=== PATIENT | female | born 1950 | race Caucasian/White ===

== ENCOUNTER 2022-10-15 10:54 | Outpatient (REF) | payer OTHER, MEDICAID, SELFPAY | END 2022-10-15 10:55 | disposition home or self-care (01) | LOC: HO.HOSX 10:54 | PROVIDERS: PCP Internal Medicine; Visit Provider Physician Assistant | DX: M25.552 Pain in left hip (principal) | CPT/HCPCS: 99202 ==

== ENCOUNTER 2023-01-17 12:22 | Outpatient (REF) | payer OTHER, MEDICAID, SELFPAY ==
--- NOTE | ~2023-01-17 | XR_ITS ---
EXAMINATION: XR HIP, LEFT CLINICAL INFORMATION: Pain in unspecified hip COMPARISON: None available. TECHNIQUE: AP pelvis and Two views of the left hip. FINDINGS: No fracture. Alignment is anatomic. There is no significant narrowing of the joint spaces of the hips. There is subchondral sclerosis in the superior dorsal lateral aspect of the left acetabulum. There are small marginal osteophytes involving the femoral head. The sacroiliac joints and pubic symphysis are within normal limits. Soft tissues are unremarkable. XR/XR hip LT w PEL1V IMPRESSION: 1. No significant joint space narrowing of the hips. 2. Mild osteoarthritis of the left hip.
== END 2023-01-17 12:23 | disposition home or self-care (01) ==
LOC: HO.HOSX 12:22
PROVIDERS: PCP Internal Medicine; Visit Provider Physician Assistant
DX: M76.892 Other specified enthesopathies of left lower limb, excluding foot (principal); M16.12 Unilateral primary osteoarthritis, left hip
CPT/HCPCS: 73502; 99202

== ENCOUNTER 2023-01-17 12:22 | Outpatient (AMB) | payer OTHER, MEDICAID, SELFPAY ==
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
[2023-01-17 12:53] VITALS: BMI 23.2
== END 2023-01-17 13:02 | disposition home or self-care (01) ==
PROVIDERS: PCP Internal Medicine; Visit Provider Physician Assistant
DX: M76.892 Other specified enthesopathies of left lower limb, excluding foot (principal); M16.12 Unilateral primary osteoarthritis, left hip; M54.32 Sciatica, left side
CPT/HCPCS: 99203

== ENCOUNTER 2023-02-14 08:55 | Outpatient (RCR) | payer OTHER, MEDICAID, SELFPAY ==
[2023-02-14 08:55] VITALS: BP 140/80; PULSE 85; O2SAT 96
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
== END 2023-07-05 13:09 | disposition home or self-care (01) ==
LOC: HO.PTWFD 08:55
PROVIDERS: PCP Internal Medicine; Visit Provider Physician Assistant
DX: M76.892 Other specified enthesopathies of left lower limb, excluding foot (principal); M16.12 Unilateral primary osteoarthritis, left hip
CPT/HCPCS: 97161

== ENCOUNTER 2023-02-28 13:39 | Outpatient (AMB) | payer OTHER, MEDICAID, SELFPAY ==
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
[2023-02-28 13:50] VITALS: BMI 23.2
== END 2023-02-28 14:05 | disposition home or self-care (01) ==
PROVIDERS: PCP Internal Medicine; Visit Provider Orthopaedic Surgery
DX: M25.552 Pain in left hip (principal); M16.12 Unilateral primary osteoarthritis, left hip; M76.892 Other specified enthesopathies of left lower limb, excluding foot
CPT/HCPCS: 99213

== ENCOUNTER → 2023-02-28 13:39 | Outpatient (BNVA) | payer OTHER, MEDICAID, SELFPAY | PROVIDERS: PCP Internal Medicine; Visit Provider Orthopaedic Surgery | DX: M25.552 Pain in left hip (principal); M16.12 Unilateral primary osteoarthritis, left hip; M76.892 Other specified enthesopathies of left lower limb, excluding foot | CPT/HCPCS: 99212 ==

== ENCOUNTER 2023-05-13 09:11 | Outpatient (REF) | payer OTHER, SELFPAY ==
--- NOTE | ~2023-05-13 | XR_ITS ---
EXAMINATION: 1. STANDING RADIOGRAPHS OF THE BILATERAL KNEES 2. LATERAL AND PATELLAR SUNRISE VIEWS OF THE LEFT KNEE CLINICAL INFORMATION: Pain COMPARISON: None TECHNIQUE: Standing frontal views of both knees in addition to lateral and patellar sunrise views of the left knee. FINDINGS: Left knee: No fracture or dislocation of the left knee. There is moderate narrowing of the medial joint space height and mild narrowing of the lateral and patellofemoral joint spaces. Chondrocalcinosis is noted. No suprapatellar joint effusion. Tiny tricompartmental marginal osteophytes. No localized soft tissue swelling of the anterior knee. Standing AP view of the right knee: No gross fracture or dislocation. Moderate narrowing of the medial joint space height with mild narrowing of the lateral joint space height. Chondrocalcinosis noted. XR/XR knee LT 2V IMPRESSION: Mild to moderate degenerative changes of both knees, most prominent within the medial compartments.
--- NOTE | ~2023-05-13 | XR_ITS ---
EXAMINATION: 1. STANDING RADIOGRAPHS OF THE BILATERAL KNEES 2. LATERAL AND PATELLAR SUNRISE VIEWS OF THE LEFT KNEE CLINICAL INFORMATION: Pain COMPARISON: None TECHNIQUE: Standing frontal views of both knees in addition to lateral and patellar sunrise views of the left knee. FINDINGS: Left knee: No fracture or dislocation of the left knee. There is moderate narrowing of the medial joint space height and mild narrowing of the lateral and patellofemoral joint spaces. Chondrocalcinosis is noted. No suprapatellar joint effusion. Tiny tricompartmental marginal osteophytes. No localized soft tissue swelling of the anterior knee. Standing AP view of the right knee: No gross fracture or dislocation. Moderate narrowing of the medial joint space height with mild narrowing of the lateral joint space height. Chondrocalcinosis noted. XR/XR knee standing BI IMPRESSION: Mild to moderate degenerative changes of both knees, most prominent within the medial compartments.
== END 2023-05-13 09:12 | disposition home or self-care (01) ==
LOC: HO.HOSX 09:11
PROVIDERS: Visit Provider Orthopaedic Surgery
DX: M23.92 Unspecified internal derangement of left knee (principal)
CPT/HCPCS: 73560; 73565; 99212

== ENCOUNTER 2023-05-13 11:37 | Outpatient (AMB) | payer OTHER, SELFPAY ==
--- NOTE | 2023-05-13 12:15 | MHC.OFFVIS ---
Intake Vital Signs 05/13/23 12:16 Height 52 ft Weight 127 lb BMI 0.2 Intake Visit Reasons: New Prob- Lt knee pain Intake Note: Kritsa is a 73 year old female who presents today for a new problem visit with complaints of left knee pain. She reports that she tripped over a coffee table about a month ago landing on the left knee. Since this injury she has had pain in the knee. She takes half a Hydrocodone PRN. She has also bee utilizing topical ice and heat application. She has been donig therapy but they are taking is very mild as they werent sure if there was any underlying injury. Allergies Iodine and Iodide Containing Produc [IODINE AND IODIDE CONTAINING PRODUC] Allergy (Severe, Verified 02/28/23 13:55) RASH morphine [MORPHINE] Allergy (Severe, Verified 02/28/23 13:55) STATES HEART ALMOST STOPS shellfish derived [SHELLFISH DERIVED] Allergy (Severe, Verified 02/28/23 13:55) RASH latex [LATEX] Allergy (Intermediate, Verified 02/28/23 13:55) RASH Penicillins [PENICILLINS] Allergy (Intermediate, Verified 02/28/23 13:55) HIVES/SWELLING/ASTHMA codeine Allergy (Unknown, Verified 02/28/23 13:55) Unknown duloxetine [From Cymbalta] Allergy (Unknown, Verified 02/28/23 13:55) Unknown gabapentin Allergy (Unknown, Verified 02/28/23 13:55) Unknown ibuprofen Allergy (Unknown, Verified 02/28/23 13:55) Unknown penicillin V Allergy (Unknown, Verified 02/28/23 13:55) Unknown Sulfa (Sulfonamide Antibiotics) Allergy (Unknown, Verified 02/28/23 13:55) Unknown sulfadiazine Allergy (Unknown, Verified 02/28/23 13:55) Unknown ENVIROMENTAL Allergy (Intermediate, Uncoded 02/28/23 13:55) HAYFEVER HPI New Prob- Lt knee pain HPI Details Krista is a 73 year old woman who returns with new complaints of left knee pain x1 month. She reports tripping and falling onto her left knee ~1 month ago, and has had pain with activity since. She manages her pain with a small Hydrocodone dose prn, ice, and heat, which gives some relief She has been attending PT but they were unsure if she had an underlying injury so this has not been particularly helpful yet. PFSH Surgical History Hx of dilation and curettage Social History Patient Tobacco Use Status: Current everyday Tobacco user Current occupational status: retired Review of Systems Const All systems reviewed & are unremarkable except as noted in HPI and below Physical Exam Vital Signs: BMI result Body Mass Index 0.2 Const General: no acute distress, alert and awake Orientation/consciousness: patient oriented x3 HEENT Head: Yes normocephalic and Yes atraumatic Eyes EOM: EOMs intact bilaterally Resp Effort & Inspection: normal respiratory effort and able to speak in complete sentences Cardio Jugular venous distension: no JVD Skin General skin exam: turgor normal Rashes: no rashes Neuro General: patient oriented x3 Extrem Other: left knee with medial joint line ttp and sharp medial Steinmen's Psych Appearance: grossly normal Affect: normal affect Attitude: cooperative Assessment & Plan Assessment & Plan (1) Internal derangement of left knee: Code(s): M23.92 - Unspecified internal derangement of left knee Plan: Not improving and worsening sharp left medial pain with pain with twisting activities. MRI Plan Scribed for Pepe Suarez MD by Moses Nicholson, chief medical director, on 05/13/23 at 12:30 PM, EST. Orders: Orders XR knee LT 2V 05/13/23 M25.569 - Pain in unspecified knee MR knee LT wo con Today M23.92 - Unspecified internal derangement of left knee XR knee standing BI 05/13/23 M25.569 - Pain in unspecified knee Coding Level of Care Code Est Pt Level 3 (41316) Diagnoses Internal derangement of left knee M23.92
== END 2023-05-13 12:48 | disposition home or self-care (01) ==
PROVIDERS: PCP Internal Medicine; Visit Provider Orthopaedic Surgery
DX: M23.92 Unspecified internal derangement of left knee (principal)
CPT/HCPCS: 99213

== ENCOUNTER 2023-06-20 14:37 | Outpatient (AMB) | payer OTHER, SELFPAY ==
--- NOTE | 2023-06-20 14:50 | A.OFFVIS_ITS ---
Intake Vital Signs 06/20/23 14:51 Height 5 ft 2 in Weight 127 lb BMI 23.2 Intake Visit Reasons: OV- MRI Review LT Knee Intake Note: Krista is a 73 year old female who presents today for an MRI follow up of her left knee. Allergies Iodine and Iodide Containing Produc [IODINE AND IODIDE CONTAINING PRODUC] All ergy (Severe, Verified 02/28/23 13:55) RASH morphine [MORPHINE] Allergy (Severe, Verified 02/28/23 13:55) STATES HEART ALMOST STOPS shellfish derived [SHELLFISH DERIVED] Allergy (Severe, Verified 02/28/23 13:55) RASH latex [LATEX] Allergy (Intermediate, Verified 02/28/23 13:55) RASH Penicillins [PENICILLINS] Allergy (Intermediate, Verified 02/28/23 13:55) HIVES/SWELLING/ASTHMA codeine Allergy (Unknown, Verified 02/28/23 13:55) Unknown duloxetine [From Cymbalta] Allergy (Unknown, Verified 02/28/23 13:55) Unknown gabapentin Allergy (Unknown, Verified 02/28/23 13:55) Unknown ibuprofen Allergy (Unknown, Verified 02/28/23 13:55) Unknown penicillin V Allergy (Unknown, Verified 02/28/23 13:55) Unknown Sulfa (Sulfonamide Antibiotics) Allergy (Unknown, Verified 02/28/23 13:55) Unknown sulfadiazine Allergy (Unknown, Verified 02/28/23 13:55) Unknown ENVIROMENTAL Allergy (Intermediate, Uncoded 02/28/23 13:55) HAYFEVER HPI OV- MRI Review LT Knee HPI Details Krista is a 73 year old woman who returns for an MRI review of her left knee pain. She continues to have pain with daily activities, and limited relief from PO medication or PT. PFSH Surgical History Hx of dilation and curettage Social History Patient Tobacco Use Status: Current everyday Tobacco user Current occupational status: retired Review of Systems Const All systems reviewed & are unremarkable except as noted in HPI and below Physical Exam Vital Signs: BMI result Body Mass Index 23.2 Const General: no acute distress, alert and awake Orientation/consciousness: patient oriented x3 HEENT Head: Yes normocephalic and Yes atraumatic Eyes EOM: EOMs intact bilaterally Resp Effort & Inspection: normal respiratory effort and able to speak in complete sentences Cardio Jugular venous distension: no JVD Skin General skin exam: turgor normal Rashes: no rashes Neuro General: patient oriented x3 Extrem Other: Stabnle MCL TTP over MCL origen and pain with valgus stress testing. Neg Steinmen's Psych Appearance: grossly normal Affect: normal affect Attitude: cooperative Results Reviewed Results Reviewed: I personally reviewed the MR images. G2 MCL origen injury PF OA Assessment & Plan Assessment & Plan (1) Sprain of medial collateral ligament of left knee: Code(s): S83.412A - Sprain of medial collateral ligament of left knee, initial encounter Plan: Stable and improving but with pain MCL Brace and PT F/u 6-8 weeks Plan Scribed for Pepe Suarez MD by Moses Nicholson, front office medical assistant, on 06/20/23 at 2:57 PM, EST. Orders: Orders PT Evaluation and Treatment 06/20/23 S83.412A - Sprain of medial collateral ligament of left knee, initial encounter Coding Level of Care Code Est Pt Level 3 (91372) Diagnoses Sprain of medial collateral ligament of left knee S83.412A
[2023-06-20 14:51] VITALS: BMI 23.2
== END 2023-06-20 15:03 | disposition home or self-care (01) ==
PROVIDERS: PCP Internal Medicine; Visit Provider Orthopaedic Surgery
DX: S83.412A Sprain of medial collateral ligament of left knee, initial encounter (principal)
CPT/HCPCS: 99213

== ENCOUNTER → 2023-06-20 14:37 | Outpatient (BNVA) | payer OTHER, SELFPAY | PROVIDERS: PCP Internal Medicine; Visit Provider Orthopaedic Surgery | DX: S83.412D Sprain of medial collateral ligament of left knee, subsequent encounter (principal) | CPT/HCPCS: 99212 ==

== ENCOUNTER 2023-08-25 14:00 | Outpatient (RCR) | payer OTHER, SELFPAY ==
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
== END 2023-11-23 15:00 | disposition home or self-care (01) ==
LOC: HO.PTWFD 14:00
PROVIDERS: PCP Nurse Practitioner; Visit Provider Orthopaedic Surgery
DX: S83.412A Sprain of medial collateral ligament of left knee, initial encounter (principal)
CPT/HCPCS: 97110; 97116; 97161

== ENCOUNTER 2024-07-30 11:40 | Outpatient (AMB) | payer OTHER, SELFPAY ==
--- NOTE | 2024-07-30 11:54 | A.OFFVIS_ITS ---
Vital Signs 07/30/24 12:09 Height 5 ft 2 in Weight 125 lb BMI 22.9 Intake Visit Reasons: New prob- RT ankle sprain DOI 06/25/24 Intake Note: Krista is a 74 year old female who presents today for an evaluation of right ankle sprain, DOI 06/25/24. Patient had slipped in a hole in her driveway causing her to fall on an inverted ankle, she felt a snap. She was seen at [facility] on 06/26/24 where x-rays were taken. Currently her pain is located at the lateral aspect of ankle and the top of her foot. She has ongoing swelling.Occasional numbness and tingling. Allergies Iodine and Iodide Containing Produc [IODINE AND IODIDE CONTAINING PRODUC] Allergy (Severe, Verified 02/28/23 13:55) RASH morphine [MORPHINE] Allergy (Severe, Verified 02/28/23 13:55) STATES HEART ALMOST STOPS shellfish derived [SHELLFISH DERIVED] Allergy (Severe, Verified 02/28/23 13:55) RASH latex [LATEX] Allergy (Intermediate, Verified 02/28/23 13:55) RASH Penicillins [PENICILLINS] Allergy (Intermediate, Verified 02/28/23 13:55) HIVES/SWELLING/ASTHMA codeine Allergy (Unknown, Verified 02/28/23 13:55) Unknown duloxetine [From Cymbalta] Allergy (Unknown, Verified 02/28/23 13:55) Unknown gabapentin Allergy (Unknown, Verified 02/28/23 13:55) Unknown ibuprofen Allergy (Unknown, Verified 07/30/24 12:03) Unknown penicillin V Allergy (Unknown, Verified 02/28/23 13:55) Unknown Sulfa (Sulfonamide Antibiotics) Allergy (Unknown, Verified 02/28/23 13:55) Unknown sulfadiazine Allergy (Unknown, Verified 02/28/23 13:55) Unknown naproxen Allergy (Verified 07/30/24 12:03) Hives ENVIROMENTAL Allergy (Intermediate, Uncoded 02/28/23 13:55) HAYFEVER HPI HPI New prob- RT ankle sprain DOI 06/25/24: Details: 74-year-old female presents to the office today for an injury she sustained to her right ankle on 06/25/2024. She states she was walking in her driveway when she stepped in a pothole and slipped and fell. She was seen at [facility] where she had x-rays and was referred to Orthopedics for follow-up. She states she has been weight-bearing as tolerated with a regular shoe and has significant pain in the right ankle. [facility] Surgical History Hx of dilation and curettage Social History Patient Tobacco Use Status: Current everyday Tobacco user Current occupational status: retired Review of Systems Const All systems reviewed & are unremarkable except as noted in HPI and below Physical Exam Vital Signs: BMI result Body Mass Index 22.9 Const General: cooperative and no acute distress Orientation/consciousness: patient oriented x3 Resp Effort & Inspection: normal respiratory effort and able to speak in complete sentences Cardio Peripheral pulses: Peripheral pulses 2+ throughout Neuro General: patient oriented x3 Extrem Other: Right ankle 2. On inspection with mild swelling over the lateral aspect of the ankle with tenderness to palpation. There is no bruising and no tenderness over the syndesmosis. No tenderness over the posterior aspect of the ankle. Neurovascularly intact. Results Reviewed Results Reviewed: X-rays of the right ankle obtained in the office today show potentially healing occult fracture of the distal fibula. Ankle mortise is intact. Assessment & Plan Assessment & Plan (1) Right ankle sprain: Code(s): S93.401A - Sprain of unspecified ligament of right ankle, initial encounter Category: Medical Plan: Patient was fit for a tall boot, she can weightbear as tolerated. I explained that I can not rule out if she had a fracture at the time of injury given this was 4 weeks ago. But it does appear on x-ray that she may have some osseous healing. She was also given a lace-up ankle brace in the office today to transition into once she is weaned from the boot. She will begin physical therapy for range of motion gentle strengthening proprioceptive training. If symptoms persist over the next 4-6 weeks she can contact our office otherwise follow up as needed. Orders: Orders XR ankle RT min 3V Today M25.571 - Pain in right ankle and joints of right foot PT Evaluation and Treatment Today S93.401A - Sprain of unspecified ligament of right ankle, initial encounter Coding Level of Care Code New Pt Level 3 (13258) Complex EM visit Add On G2396 Diagnoses Right ankle sprain S93.401G
[2024-07-30 12:09] VITALS: BMI 22.9
--- OUTSIDE RECORDS SUMMARY | 2024-07-30 13:29 | XMS_ITS | Continuity of Care Document ---
Author Organization [facility] ter Address [address] [place] [address]- Care Team Providers Care Wringer And Setter Name Role Phone Erik MCKEON, Elida Primary Care Physician Encounter [facility] Date(s): 04/03/24 - 07/18/[address] [address]- Attending Physician: Vandana Bajwa MD Admitting Physician: Vandana Bajwa MD Referring Physician: Elida Valencia NP Encounter Type: Pre-Outpt Allergies, Adverse Reactions, Alerts Substance Criticality Severity Reaction Reaction Severity Status codeine Unable to assess criticality Unknown Active sulfADIAZINE Unable to assess criticality Persistent Severe Throat Closes up Active morphine Unable to assess criticality Persistent Severe Low Pulse, Slow Breathing Active penicillins Unable to assess criticality Unknown Childhood Active shellfish Unable to assess criticality Persistent Moderate Itchy Hands Active Bactrim Unable to assess criticality Persistent Mild rash Active Cats Unable to assess criticality Persistent Moderate Asthma Attack Active Dogs Unable to assess criticality Persistent Moderate Asthma Attack Active Latex Unable to assess criticality Persistent Moderate Itchy, SOB rash Active Milk Products Unable to assess criticality Persistent Moderate Active Nuts Unable to assess criticality Persistent Severe Throat Closes Up Active Cymbalta Unable to assess criticality Unknown Active iodine Unable to assess criticality Unknown Active Egg Allergy Active Medications acetaminophen-HYDROcodone 325 mg-5 mg oral tablet 2 tablet, By Mouth, Every 4 hours, PRN for pain, 0 Refills, Maintenance, 10/22/21 10:09:00 AM EDT, Tablet, Partial fill upon patient request if the prescription is for a schedule II opioid drug. Start Date: 10/22/21 Status: Ordered Repeat number: 1 Ambien 10 mg oral tablet 0.5 tablet = 5 mg, By Mouth, Daily at bedtime, PRN as needed for insomnia, 0 Refills, Maintenance, 08/05/22 1:03:00 PM EST, Tablet, Partial fill upon patient request if the prescription is for a schedule II opioid drug. Start Date: 08/05/22 Status: Ordered Repeat number: 1 amLODIPine 10 mg oral tablet 10 mg, 1, tablet, By Mouth, Daily, Refills 0, Maintenance, 10/22/21 10:11:00 AM EDT, Partial fill upon patient request if the prescription is for a schedule II opioid drug. Start Date: 10/22/21 Status: Ordered Repeat number: 1 diazepam 2 mg oral tablet 2 mg, 1, tablet, By Mouth, Every 8 hours, Refills 0, Maintenance, 10/22/21 10:09:00 AM EDT, Partial fill upon patient request if the prescription is for a schedule II opioid drug. Start Date: 10/22/21 Status: Ordered Repeat number: 1 diclofenac 1% topical gel 1 application, Topically, 4 times a day, # 100 Gm, 0 Refills, Maintenance, 10/22/21 10:12:00 AM EDT,Gel, Partial fill upon patient request if the prescription is for a schedule II opioid drug. Start Date: 10/22/21 Status: Ordered Quantity: 100.0 Unit: g Repeat number: 1 Eye Drops- Allergy Eye Drops- Allergy, Refills 0, Maintenance, 10/22/21 10:14:00 AM EDT, Supply Start Date: 10/22/21 Status: Ordered Repeat number: 1 Flonase 50 mcg/inh nasal spray Daily, 0 Refills, Maintenance, 10/22/21 10:12:00 AM EDT, Partial fill upon patient request if the prescription is for a schedule II opioid drug. Start Date: 10/22/21 Status: Ordered Repeat number: 1 glipiZIDE 5 mg oral tablet 5 mg, 1, tablet, By Mouth, Daily, Refills 0, Maintenance, 10/22/21 10:10:00 AM EDT, Partial fill upon patient request if the prescription is for a schedule II opioid drug. Start Date: 10/22/21 Status: Ordered Repeat number: 1 Lantus Solostar Pen 100 units/mL subcutaneous solution = 10 units, Subcutaneous Injection, Daily at bedtime, take 10 untis daily. e.11.9, 30 day supply, #15 mL, 11 Refills, Maintenance, 04/03/24 11:43:00 AM EDT, Solution, [facility]/pharmacy #[id number], Partial fill upon patient request if the prescription is for a schedule II opioid drug., 157.5, cm, 04/03/24 11:12:00 EDT, Height, 58.3, kg, 10/07/23 12:15:00 EDT, Dry Weight Start Date: 04/03/24 Status: Ordered Quantity: 15.0 Unit: mL Repeat number: 12 losartan 50 mg oral tablet 50 mg, 1, tablet, By Mouth, Daily, Refills 0, Maintenance, 10/22/21 10:10:00 AM EDT, Partial fill upon patient request if the prescription is for a schedule II opioid drug. Start Date: 10/22/21 Status: Ordered Repeat number: 1 omeprazole 20 mg oral delayed release tablet 1 tablet = 20 mg, By Mouth, Daily, 0 Refills, Maintenance, 10/22/21 10:07:00 AM EDT, Partial fill upon patient request if the prescription is for a schedule II opioid drug. Start Date: 10/22/21 Status: Ordered Repeat number: 1 Pen [place], 31 G x 5 mm BD Ultra Fine III See Instructions, # 200 each, Refills 11, Tot. Refills 11, Maintenance, Use as directed for diabetes care 4 times per day, 04/03/24 11:45:00 AM EDT, Supply, 157.5, cm, 04/03/24 11:12:00 EDT, Height, 58.3, kg, 10/07/23 12:15:00 EDT, Dry Weight Start Date: 04/03/24 Status: Ordered Quantity: 200.0 Unit: each Repeat number: 12 Tradjenta 5 mg oral tablet 1 tablet = 5 mg, By Mouth, Daily, 0 Refills, Maintenance, 10/22/21 10:08:00 AM EDT, Partial fill upon patient request if the prescription is for a schedule II opioid drug. Start Date: 10/22/21 Status: Ordered Repeat number: 1 Ventolin 90 mcg Inhaler 2, puffs, Inhalation, 4 times a day, Maintenance, 11/14/13 2:56:58 PM EDT Start Date: 11/14/13 Status: Ordered Repeat number: 1 Social History Social History Type Response Tobacco Type: Cigarettes. To bacco use times per day: 1 PPD. Sex Sex Representation Female (finding) Patient Care team information Care Team Personnel Name: Elida Valencia NP Position: [facility] Outreach Member Role: PCP Address: [address] [place] [id number] Telecom: Care Team Related Persons Name: JESUS BARRIOS Insurance Providers Guarantor name: ANA BARRIOS Health Plan Information #: 1 Payer: NA Member Number: [id number] Policy Number: NA Group Number: [facility] Health Plan Information #: 2 Payer: NA Member Number: [id number] Policy Number: NA Group Number: [id number]
--- OUTSIDE RECORDS SUMMARY | 2024-07-30 13:29 | XMS_ITS | Encounter Summary ---
Author Organization [facility] Address [address] [place] [address] Care Team Providers Care Emergency Management Coordinator Name Role Phone Elida Valencia NP Primary Care Provider Unavaila ble Jose Cade DO Primary Care Provider Unav ailable Encounter Details Date Type Department Care Team Description 02/21/2023 Orders Only Medical Records [address] [place] [address] Abstract, Provider Social History Tobacco Use Types Packs/Day Years Used Date Smoking Tobacco: Every Day Cigarettes 1 20 Smokeless Tobacco: Former Chew Comments:started smoking at age 47 Alcohol Use Standard Drinks/Week Comments Yes 0 (1 standard drink = 0.6 oz pur e alcohol) 2-4 drinks on a weekend day Sex Assigned at Date Recorded Not on file documented as of this encounter Plan of Treatment Not on file documented as of this encounter Procedures Procedure Name Priority Date/Time Associated Diagnosis Comments OUTSIDE COLONOSCOPY Routine 10/18/2022 documented in this encounter Results * OUTSIDE COLONOSCOPY (10/18/2022) Provider Abstract RADIOLOGY documented in this encounter Visit Diagnoses Not on filedocumented in this encounter Care Teams Emergency Management Coordinator Relationship Specialty Start Date End Date Elida Valencia NP PCP - General Internal Medicine 04/05/17 06/21/23 Jose Cade DO PCP - General Internal Medicine 06/22/23 documented as of this encounter
--- OUTSIDE RECORDS SUMMARY | 2024-07-30 13:29 | XMS_ITS | Encounter Summary ---
Author Organization [employer] [facility] Address [address] [place] [address] [address] [place] [address] Care Team Providers Care Nuclear Medicine Technologist Name Role Phone Unavailable Primary Care Provider Unavailabl e Encounter Details Date Type Department Care Team (Latest Contact Info) Description 10/25/2018 Abstract [facility] CONVERSIONS Dental, Provider, DDS Social History Tobacco Use Types Packs/Day Years Used Date Smoking Tobacco: Never Assessed Comments Unknown Sex and Gender Information Value Date Recorded Sex Assigned at Female 04/05/2022 10:30 AM EDT Legal Sex Female 10:30 AM EDT Gender Identity Female 04/05/2022 10:30 AM EDT Sexual Orientation Choose not to disclose 2021 10:30 AM EDT documented as of this encounter Plan of Treatment Not on file documented as of this encounter Visit Diagnoses Not on filedocumented in this encounter
--- OUTSIDE RECORDS SUMMARY | 2024-07-30 13:29 | XMS_ITS | Continuity of Care Document ---
Author Organization [facility] ter Address [address] [place] [address]- Care Team Providers Care District Court Reporter Name Role Phone Elida Valencia NP Primary Care Physician Encounter [facility] Date(s): 06/18/24 - 07/18/[address] [address]- Attending Physician: Ernst Temple Admitting Physician: AdmtrErnst Referring Physician: Admtr ArMuna Encounter Type: Triage Allergies, Adverse Reactions, Alerts Substance Criticality Severity [...] Refills, Maintenance, 04/03/24 11:43:00 AM EDT, Solution, [facility]/pharmacy #[id number], Partial fill upon patient request if [...] 10/22/21 Status: Ordered Repeat number: 1 Pen [place], 31 G x 5 mm BD Ultra [...] Team Personnel Name: Elida Valencia NP Position: [facility] Outreach Member Role: PCP Address: [address] [place] [id number] Telecom: Care Team Related Persons Name: JESUS BARRIOS Insurance Providers Guarantor name: ANA BARRIOS Health Plan Information #: 1 Payer: [place] Member Number: NA Policy Number: NA Group Number: NA
--- OUTSIDE RECORDS SUMMARY | 2024-07-30 13:29 | XMS_ITS | Encounter Summary ---
Author Organization [facility] Address [address] [place] [address] Care Team Providers Care Gis Mapping Technician Name Role Phone Elida Valencia NP Primary Care Provider Unavaila ble Jose Cade DO Primary Care Provider Unav ailable Encounter Details Date Type Department Care Team Description 06/15/2017 Business Doc Medical Records [address] [place] [id number] Abstract, Provider Social History Tobacco Use Types [...] on filedocumented in this encounter Care Teams Gis Mapping Technician Relationship Specialty Start Date End Date Elida Valencia NP PCP - General Internal Medicine 04/05/17 06/21/23 Jose Cade DO PCP - General Internal Medicine 06/22/23 documented as of this encounter
--- OUTSIDE RECORDS SUMMARY | 2024-07-30 13:29 | XMS_ITS | Clinical Summary ---
Author Organization [facility] Address [address] [place] [address] Care Team Providers Care Chemical Laboratory Assistant Name Role Phone Rayo Shyamsharlene MORRISON Primary Care Provider Unav ailable Allergies Active Allergy Reactions Severity Noted Date Comments Cats 05/02/2017 Codeine 05/02/2017 Dogs 05/02/2017 Eggs 05/02/2017 Flu Virus Vaccine 05/02/2017 Latex Hives/Urticaria,SOB, Wheezing,Rash/Dermatitis 05/02/2017 Morphine Anaphylaxis 05/02/2017 Penicillins SOB, Wheezing,Rash/Dermatitis,Swelling/Rafael a 05/02/2017 Shellfish Allergy 05/02/2017 Sulfa Drugs Hives/Urticaria 05/02/2017 Medications Medication Sig Dispensed Refills Start Date End Date Status Dulaglutide 0.75 MG/0.5ML Solution Pen-injector Inject into the skin. 0 Active fluorometholone (FML) 0.1 % ophthalmic suspension 1 Drop every 4 hours. 0 Active ALBUTEROL SULFATE 108 (90 BASE) MCG/ACT Aero Soln Inhale 2 Puffs into the lungs every 4 hours as needed. 0 Active Dapagliflozin Propanediol 10 MG Tab Take by mouth. 0 Active omeprazole (PRILOSEC) 20 MG capsule Take 20 mg by mouth daily. 0 Active Clotrimazole 10 MG Lozenge Take by mouth. 0 Active valacyclovir (VALTREX) 1 G tablet Take 1,000 mg by mouth 3 times daily. 0 Active amitriptyline (ELAVIL) 10 MG tablet TAKE 1/2 (5MG) TABLET BY MOUTH EVERY EVENING 3 04/09/2017 Active SYMBICORT 80-4.5 MCG/ACT inhaler INHALE 2 PUFFS BY MOUTH TWICE A DAY 2 04/05/2017 Active clindamycin (CLEOCIN) 300 MG capsule TAKE 1 CAPSULE THREE TIMES A DAY FOR 7 DAYS 0 03/07/2017 Active VOLTAREN 1 % Gel APPLY DIRECTED NEEDED TRANSDERMAL 30 DAYS 2 03/01/2017 Active PROCTOSOL HC 2.5 % rectal cream APPLY A SMALL AMOUNT TO AFFECTED AREA TWICE A DAY 3 03/17/2017 Active GAVILYTE-G 236 G suspension TAKE 237 ML BY MOUTH DIRECTED DIRECTED GLASS FULL EVERY 10-15 MINS 0 03/17/2017 Active Zolpidem Tartrate 10 MG Tab TAKE 1 TABLET BY MOUTH AT BEDTIME NEEDED 2 04/11/2017 Active Family History Medical History Relation Name Comments CA Breast Negative Hx CA Colon Negative Hx CA Ovarian Negative Hx Uterine Cancer Negative Hx Social History Tobacco Use Types Packs/Day Years Used Date Smoking Tobacco: Every Day Cigarettes 1 20 Smokeless Tobacco: Former Chew Comments:started smoking at age 47 Alcohol Use Standard Drinks/Week Comments Yes 0 (1 standard drink = 0.6 oz pur e alcohol) 2-4 drinks on a weekend day Sex Assigned at Date Recorded Not on file Last Filed Vital Signs Vital Sign Reading Time Taken Comments Blood Pressure 120/64 05/02/2017 2:29 PM EST Pulse 80 05/02/2017 2:29 PM EST Temperature - - Respiratory Rate 20 05/02/2017 2:29 PM EST Oxygen Saturation - - Inhaled Oxygen Concentration - - Weight 61.1 kg (134 lb 9.6 oz) 05/02/2017 2:29 P M EST Height 157.5 cm (5' 2 ) 05/02/2017 2:29 PM EST Body Mass Index 24.62 05/02/2017 2:29 PM EST Plan of Treatment Health Maintenance Due Date Last Done Comments Covid-19 Vaccine (#1) 1950 DEPRESSION SCREEN 1963 HEPATITIS C SCREENING 1969 TOBACCO CHECK/ADVISE 1969 DTAP/TDAP/TD (1 - Tdap) 1970 CHOLESTEROL SCREENING 1971 SHINGLES VACCINE (2 of 3) 08/10/2012 06/15/2012 BONE DENSITY SCREENING 01/09/2016 FALL RISK ASSESSMENT 01/09/2016 PNEUMOCOCCAL VACCINE (1 - PCV) 01/09/2016 MAMMOGRAM 04/03/2023 04/03/2022, 03/07, 03/19/2020, Additional history exists INFLUENZA (#1) 2024 04/27/2019 BMI CHECK/ADVISE 06/06/2024 COLON CANCER SCREENING 10/18/2032 10/18/2022 Care Teams Chemical Laboratory Assistant Relationship Specialty Start Date End Date Jose Cade DO PCP - General Internal Medicine 06/22/23
--- OUTSIDE RECORDS SUMMARY | 2024-07-30 13:29 | XMS_ITS | Encounter Summary ---
Author Organization [facility] Address [address] [place] [address] Care Team Providers Care Chronic Condition Nurse Name Role Phone Elida Valencia NP Primary Care Provider Unavaila ble Jose Cade DO Primary Care Provider Unav ailable Encounter Details Date Type Department Care Team Description 02/21/2023 Transfer Records Medical Records [address] [place] [address] Abstract, Provider Social History Tobacco Use Types [...] on filedocumented in this encounter Care Teams Chronic Condition Nurse Relationship Specialty Start Date End Date Elida Valencia NP PCP - General Internal Medicine 04/05/17 06/21/23 Jose Cade DO PCP - General Internal Medicine 06/22/23 documented as of this encounter
--- OUTSIDE RECORDS SUMMARY | 2024-07-30 13:29 | XMS_ITS | Clinical Summary ---
Author Organization [employer] [facility] Address [address] [place] [address] 7 [place] [address] Care Team Providers Care Industrial Retrofit Designer Name Role Phone Unavailable Primary Care Provider Unavailabl e Active Problems Problem Noted Date Diagnosed Date Dental caries 05/18/2023 Social History Tobacco Use Types Packs/Day Years Used Date Smoking Tobacco: Never Assessed Comments Unknown Sex and Gender Information Value Date Recorded Sex Assigned at Female 04/05/2022 10:30 AM EDT Legal Sex Female 10:30 AM EDT Gender Identity Female 04/05/2022 10:30 AM EDT Sexual Orientation Choose not to disclose 2021 10:30 AM EDT Last Filed Vital Signs Vital Sign Reading Time Taken Comments Blood Pressure 150/88 10/09/2020 12:05 AM EDT Pulse - - Temperature - - Respiratory Rate - - Oxygen Saturation - - Inhaled Oxygen Concentration - - Weight - - Height - - Body Mass Index - - Plan of Treatment Health Maintenance Due Date Last Done Comments CT Colonography 1951 Colonoscopy 1951 Colorectal Cancer Screening 1951 Depression Screening 1951 FIT DNA/Cologuard 1951 FIT 1951 FOBT 1951 SDOH Screening 1951 Sigmoidoscopy 1951 Alcohol/Substance Use Screening 1963 Tobacco Screening 1963 Hepatitis C Screening 1969 DTaP/Tdap/Td Vaccines (1 - Tdap) 1970 Mammogram 1991 Pneumococcal Vaccine: 50+ Years (1 of 1 - PCV) 2001 Dental X-Ray: Bitewings 06/10/2017 06/09/2016 Dental Oral Exam 04/28/2019 10/25/2018, , 03/14/2017, Additional history exists Dental Prophylaxis 04/28/2019 10/25/2018, 0 02/23/2018, 03/14/2017 Dental X-Ray: Full Mouth 06/10/2019 06/09/2016 COVID-19 Vaccine ( season) 2024 03/13/2022, 04/05/2021, 09/13/2020, Additional history exists Influenza Vaccine (#1) 2024 2, 03/14/2021, 04/06/2020, Additional history exists RSV Patients and Patients Aged 60 years or older (1 - 1-dose 75+ series) 2026 Zoster Vaccines Completed 04/28/2020, 07/2019, 06/15/2012 HIB Vaccines Aged Out No longer eligi ble based on patient's age to complete this topic HPV Vaccines Aged Out No longer eligi ble based on patient's age to complete this topic Hepatitis A Vaccines Aged Out No long er eligible based on patient's age to complete this topic Hepatitis B Vaccines Aged Out No long er eligible based on patient's age to complete this topic IPV Vaccines Aged Out No longer eligi ble based on patient's age to complete this topic Meningococcal Vaccine Aged Out No jimmy dileep eligible based on patient's age to complete this topic RSV under 20 months Aged Out No longe r eligible based on patient's age to complete this topic Rotavirus Vaccines Aged Out No longer eligible based on patient's age to complete this topic Procedures Procedure Name Priority Date/Time Associated Diagnosis Comments PROPHYLAXIS - ADULT Routine 10/25/2018 1 2:00 AM EDT PERIODIC ORAL EVALUATION - ESTABLISHED PATIENT Routine 10/25/2018 12:00 AM EDT INTRAORAL - COMPLETE SERIES OF RADIOGRAPHIC IMAGES Routine 06/09/2016 12:00 AM EST from Last 3 Months or Most Recently Relevant to Health Maintenance Insurance DENTAL - [facility] * Guarantor: Krista Talavera Account Type Relation to Patient Date of Phone Billing Address Personal/Family Self [facility] * Guarantor: Krista Talavera Account Type Relation to Patient Date of Phone Billing Address Personal/Family Self [address] [facility] [place] * Guarantor: Krista Talavera Account Type Relation to Patient Date of Phone Billing Address Personal/Family Self [facility]
--- OUTSIDE RECORDS SUMMARY | 2024-07-30 13:29 | XMS_ITS | Clinical Summary ---
Author Organization [facility] Address [address] [place] [address] Care Team Providers Care Watch Crystal Edge Grinder Name Role Phone Unavailable Primary Care Provider Unavailabl e Social History Tobacco Use Types Packs/Day Years Used Date Smoking Tobacco: Never Assessed Sex and Gender Information Value Date Recorded Sex Assigned at Not on file Gender Identity Not on file Sexual Orientation Not on file Job Start Date Occupation Industry Not on file Not on file Not on file Plan of Treatment Not on file
== END 2024-07-30 12:35 | disposition home or self-care (01) ==
PROVIDERS: PCP Nurse Practitioner; Visit Provider Physician Assistant
DX: S93.401A Sprain of unspecified ligament of right ankle, initial encounter (principal)
CPT/HCPCS: 99213; G2211

== ENCOUNTER → 2024-07-30 11:47 | Outpatient (BNV) | payer OTHER, SELFPAY | PROVIDERS: Visit Provider Radiology Diagnostic Radiology | DX: M25.571 Pain in right ankle and joints of right foot (principal) | CPT/HCPCS: 73610 ==

== ENCOUNTER 2024-07-30 12:34 | Outpatient (REF) | payer OTHER, SELFPAY ==
--- NOTE | ~2024-07-30 | XR_ITS ---
EXAMINATION: XR ANKLE, RIGHT CLINICAL INFORMATION: M25.571 - Pain in right ankle and joints of right foot COMPARISON: None available. TECHNIQUE: AP, lateral, and mortise views of the right ankle. FINDINGS: Small avulsion fracture arising from the tip of the lateral malleolus suspected. There is overlying soft tissue swelling. The mortise is intact. Talar dome is normal. There are no additional fractures. The subtalar joints and calcaneus are intact. Small plantar calcaneal spur. XR/XR ankle RT min 3V IMPRESSION: 1. Suspect small avulsion fracture from the tip of the lateral malleolus. Overlying soft tissue swelling. Electronically signed by: Bob Montero MD 07/31/2024 01:31 PM ANDREIA CABRERA
--- OUTSIDE RECORDS SUMMARY | 2024-07-31 15:14 | XMS_ITS | Encounter Summary ---
Author Organization [employer] [facility] Address [address] [place] [address] [address] [place] [address] Care Team Providers Care Underground Repairer Name Role Phone Unavailable Primary Care Provider Unavailabl e Encounter Details Date Type Department Care Team (Latest Contact Info) Description 10/25/2018 Abstract [facility] CONVERSIONS Dental, Provider, DDS Social History Tobacco [...]
--- OUTSIDE RECORDS SUMMARY | 2024-07-31 15:14 | XMS_ITS | Encounter Summary ---
Author Organization [facility] Address [address] [place] [address] Care Team Providers Care Network Associate Name Role Phone Elida Valencia NP Primary Care Provider Unavaila ble Jose Cade DO Primary Care Provider Unav ailable Encounter Details Date Type Department Care Team Description 06/10/2017 Transfer Records Medical Records [address] [place] [address] Abstract, Provider Social History Tobacco Use Types [...] on filedocumented in this encounter Care Teams Network Associate Relationship Specialty Start Date End Date Elida Valencia NP PCP - General Internal Medicine 04/05/17 06/21/23 Jose Cade DO PCP - General Internal Medicine 06/22/23 documented as of this encounter
--- OUTSIDE RECORDS SUMMARY | 2024-07-31 15:14 | XMS_ITS | Encounter Summary ---
Author Organization [facility] Address [address] [place] [address] Care Team Providers Care Senior Systems Architect Name Role Phone Elida Valencia NP Primary Care Provider Unavaila ble Jose Cade DO Primary Care Provider Unav ailable Encounter Details Date Type Department Care Team Description 02/21/2023 Orders Only Medical Records [address] [place] [address] Abstract, Provider Social History Tobacco Use Types [...] on filedocumented in this encounter Care Teams Senior Systems Architect Relationship Specialty Start Date End Date Elida Valencia NP PCP - General Internal Medicine 04/05/17 06/21/23 Jose Cade DO PCP - General Internal Medicine 06/22/23 documented as of this encounter
--- OUTSIDE RECORDS SUMMARY | 2024-07-31 15:14 | XMS_ITS | Clinical Summary ---
Author Organization [employer] [facility] Address [address] [place] [address] [address] [place] [address] Care Team Providers Care Fruit Sprayer Name Role Phone Unavailable Primary Care Provider [...] Relevant to Health Maintenance Insurance DENTAL - [facility] * Guarantor: Krista Talavera Account Type Relation to Patient Date of Phone Billing Address Personal/Family Self [facility] * Guarantor: Krista Talavera Account Type Relation to Patient Date of Phone Billing Address Personal/Family Self [address] [facility] * Guarantor: Krista Talavera Account Type Relation to Patient Date of Phone Billing Address Personal/Family Self [facility]
--- OUTSIDE RECORDS SUMMARY | 2024-07-31 15:14 | XMS_ITS | Encounter Summary ---
Author Organization [facility] Address [address] [place] [address] Care Team Providers Care Scale Expert Name Role Phone Elida Valencia NP Primary Care Provider Unavaila ble Jose Cade DO Primary Care Provider Unav ailable Encounter Details Date Type Department Care Team Description 06/15/2017 Business Doc Medical Records [address] [place] [id number] Abstract, Provider Social History Tobacco Use Types [...] on filedocumented in this encounter Care Teams Scale Expert Relationship Specialty Start Date End Date Elida Valencia NP PCP - General Internal Medicine 04/05/17 06/21/23 Jose Cade DO PCP - General Internal Medicine 06/22/23 documented as of this encounter
--- OUTSIDE RECORDS SUMMARY | 2024-07-31 15:15 | XMS_ITS | Clinical Summary ---
Author Organization [facility] Address [address] [place] [address] Care Team Providers Care Bed Bug Exterminator Name Role Phone Rayo Shyamsharlene MORRISON Primary [...] COLON CANCER SCREENING 10/18/2032 10/18/2022 Care Teams Bed Bug Exterminator Relationship Specialty Start Date End Date Jose Cade DO PCP - General Internal Medicine 06/22/23
--- OUTSIDE RECORDS SUMMARY | 2024-07-31 15:15 | XMS_ITS | Clinical Summary ---
Author Organization [facility] Address [address] [place] [address] Care Team Providers Care Automatic Pinsetter Mechanic Name Role Phone Unavailable Primary Care Provider [...]
== END 2024-07-30 12:35 | disposition home or self-care (01) ==
LOC: HO.HOSX 12:34
PROVIDERS: Visit Provider Physician Assistant
DX: M25.571 Pain in right ankle and joints of right foot (principal)
CPT/HCPCS: 73610; 99212